=== PATIENT | male | born 2000 | race Hispanic/Latino ===

== ENCOUNTER 2020-10-06 13:00 | Day surgery (SDC) | payer BC ==
[~2020-10-06 13:00] MED LIST: Dexamethasone 20 MG/5 ML VIAL ONE; Lidocaine 1% PF 5 ML VIAL ONE; Ondansetron PF 4 MG/2 ML Vial ONE; PROPOFOL 200 MG/20 ML VIAL ONE; Rocuronium Bromide 10 MG/ML (10ML VIAL) ONE; Succinylcholine 200 MG/10 ml SYRINGE FS ONE
[2020-10-06] MEDS ORDERED: Lidocaine 1% w/Epinephrine 1:100K 20 ML VIAL ONE (13:30)
[2020-10-06] MEDS ORDERED: Bupivacaine PF 0.5% 30 ML VIAL ONE (13:30)
[2020-10-06] MEDS ORDERED: Midazolam HCl 2 mg/2 ml Vial ONE (13:35)
[2020-10-06] MEDS ORDERED: Fentanyl 100 MCG/2 ML VIAL ONE (13:35)
[2020-10-06] MEDS ORDERED: Ketorolac Tromethamine 30 MG/ML VIAL ONE (13:42)
[2020-10-06] MEDS ORDERED: Acetaminophen 500 MG TAB ONE (13:42)
[2020-10-06] MEDS ORDERED: Piperacillin/Tazobactam 3.375 GM VIAL ONE (14:39)
[2020-10-06] MEDS ORDERED: SUGAMMADEX SODIUM 200 MG/2 ML VIAL ONE (15:00)
--- NOTE | 2020-10-06 15:21 | OP ---
DATE OF PROCEDURE: 10/06/2020 PREOPERATIVE DIAGNOSES: 1. Acute appendicitis. 2. Morbid obesity. POSTOPERATIVE DIAGNOSES: 1. Acute appendicitis. 2. Morbid obesity. PROCEDURE PERFORMED: Laparoscopic video appendectomy. ANESTHESIA: General, local with 0.5% Marcaine 30 mL, mixed with 1% Xylocaine with epinephrine 20 mL. DESCRIPTION OF PROCEDURE: The patient was taken to the operating room where under general anesthesia, abdomen was clipped of hair, prepared with ChloraPrep, and draped in routine fashion. James catheter placed at the beginning of procedure and removed at the end. An infraumbilical incision was made. Pneumoperitoneum to 15 mmHg was obtained with a Veress needle, replacing with a 5 port, video laparoscope inserted. A suprapubic incision was made and a 12 port placed. Right lateral subcostal incision was made and a 5 port placed. Appendix was acutely inflamed. Mesoappendix divided with a LigaSure. Appendiceal stump divided with Endo-JOSUÉ blue load stapler. Cecal stump hemostasis was gained with clips. Good hemostasis was obtained with the LigaSure and clips. Irrigation evacuated. Suprapubic fascia was approximated with 0 Vicryl GraNee needle. Irrigant and pneumoperitoneum evacuated. Good hemostasis noted. All instruments were removed. All skin incisions were approximated with interrupted subdermal 4-0 Monocryl and [place] glue applied. Job ID: [id number]
--- NOTE | 2020-10-06 15:29 | HP ---
HISTORY OF PRESENT ILLNESS: A 20-year-old male patient, morbidly obese, [employer], presents to the [facility] with 3-day history of epigastric pain, localizing to right lower quadrant. Exam consistent with appendicitis, went for a CAT scan at [facility] confirming appendicitis, transferred back to the [facility] as [facility]'s CAT scan was down. The patient received Zosyn, was COVID negative, transferred to our facility for outpatient appendectomy. TOBACCO: None. ALCOHOL: Rarely. ALLERGIES: NONE. HE REPORTS ALLERGY TO SYNTHROID, WHICH HE QUIT SEVERAL MONTHS AGO, BUT STILL HAS HIVES. I TOLD HIM HE IS NOT ALLERGIC TO SYNTHROID. PAST SURGICAL HISTORY: Noncontributory. PAST MEDICAL HISTORY: Noncontributory. REVIEW OF SYSTEMS: Noncontributory. FAMILY HISTORY: Noncontributory. PHYSICAL EXAMINATION: HEAD, EARS, EYES, NOSE, AND THROAT: Unremarkable. LUNGS: Clear to auscultation. CARDIAC: Regular rate and rhythm. No murmur or gallop. ABDOMEN: Soft, obese, tender to right lower quadrant, guarding, rebound. Positive Rovsing sign. EXTREMITIES: No ankle edema. NEUROLOGICAL: Intact. LABORATORY DATA: Lactate 1.21. COVID testing negative. White count 10, hemoglobin 15. Sodium 138, potassium 4.0, BUN 13, creatinine 0.9. ASSESSMENT AND PLAN: Acute appendicitis. Recommend laparoscopic video appendectomy. Risks of infection, bleeding, reoperation, open procedure discussed. He consents. Job ID: [id number]
[2020-10-06] MEDS ORDERED: diphenhydrAMINE 50 MG/ML VIAL ONE (15:54)
== END 2020-10-06 16:55 | disposition home or self-care (01) ==
LOC: SDC 13:00
PROVIDERS: ATTEND Specialist
PROC: 0DTJ4ZZ Resection of Appendix, Percutaneous Endoscopic Approach (ICD-10-PCS; principal; 2020-10-06)
DX: K35.80 Unspecified acute appendicitis (principal); E66.01 Morbid (severe) obesity due to excess calories; E03.9 Hypothyroidism, unspecified; Z68.41 Body mass index [BMI] 40.0-44.9, adult
CPT/HCPCS: 88304; J1200; J1885; J2250; J2543; J3010; S0020